=== PATIENT | male | born 2000 | race Caucasian/White ===

== ENCOUNTER 2018-07-15 14:14 | Emergency (ER) | payer OTHER ==
[~2018-07-15] VITALS: Ht 165.1 cm; Wt 77.5 kg
[2018-07-15 14:15] VITALS: BP 137/87
[2018-07-15] MEDS ORDERED: KETOROLAC TROMETHAMINE 10 MG TAB PO ONE (15:30)
[2018-07-15] MEDS ORDERED: KETO10TAB PO (16:17)
--- NOTE | 2018-07-15 16:22 | REP ---
Left knee and five views History: Pain There is no acute fracture or dislocation. The joint spaces are normal in appearance. Impression: There is no acute fracture or dislocation. Electronically Signed by Ricardo Wong MD 07/15/2018 04:13 P
== END 2018-07-15 16:20 | disposition home or self-care (01) ==
LOC: M ED 14:14
DX: M79.662 Pain in left lower leg (principal); F43.10 Post-traumatic stress disorder, unspecified; F41.9 Anxiety disorder, unspecified; G47.30 Sleep apnea, unspecified

== ENCOUNTER 2018-11-08 16:04 | Emergency (ER) | payer MEDICAID, OTHER, SELFPAY ==
[~2018-11-08] VITALS: Ht 160 cm; Wt 75.0 kg
[~2018-11-08 16:04] MED LIST: KETO10TAB PO
[2018-11-08] MEDS ORDERED: ACET1TAB55 PO (16:11)
[2018-11-08 17:19] LABS: BASO # 0.1 10^3/uL (0.0-0.2); BASO % 0.5 % (0.0-1.0); EOS # 0.1 10^3/uL (0.0-0.5); EOS % 0.7 % (0.0-3.0); HEMATOCRIT 45.2 % (42.0-52.0); HEMOGLOBIN 15.3 g/dl (13.5-17.5); LYMPH # 1.7 10^3/uL (1.5-5.0); LYMPH % 15.8 % (24.0-44.0); MEAN CORPUSCULAR HEMOGLOBIN 28.4 pg (27.0-33.0); MEAN CORPUSCULAR HGB CONC 33.8 g/dl (32.0-36.5); MEAN CORPUSCULAR VOLUME 83.9 fl (80.0-96.0); MONO # 0.6 10^3/uL (0.0-0.8); MONO % 5.8 % (0.0-5.0); NEUTROPHILS # 8.2 10^3/uL (1.5-8.5); NEUTROPHILS % 76.9 % (36.0-66.0); PLATELET COUNT, AUTOMATED 208 10^3/uL (150-450); RED BLOOD COUNT 5.39 10^6/uL (4.30-6.10); WHITE BLOOD COUNT 10.6 10^3/uL (4.0-10.0)
[2018-11-08 17:45] LABS: BLOOD UREA NITROGEN 15 MG/DL (7-18); CALCIUM LEVEL 9.3 MG/DL (8.5-10.1); CARBON DIOXIDE LEVEL 28 MEQ/L (21-32); CHLORIDE LEVEL 105 MEQ/L (98-107); CREATININE FOR GFR 1.17 MG/DL (0.70-1.30); GLUCOSE, FASTING 83 MG/DL (70-100); POTASSIUM SERUM 4.2 MEQ/L (3.5-5.1); SODIUM LEVEL 138 MEQ/L (136-145)
[2018-11-08 17:50] LABS: MONO REFLEX EBV COMP NEGATIVE (NEGATIVE)
[2018-11-08 17:53] LABS: INFLUENZA A AMPLIFICATION NEGATIVE (NEGATIVE); INFLUENZA B AMPLIFICATION NEGATIVE (NEGATIVE)
[2018-11-08] MEDS ORDERED: AMOX500C PO (17:59)
[2018-11-08 18:13] VITALS: BP 128/69
[2018-11-11 00:26] LABS: EBV VIRAL CAPSID AG IgG 53.5 U/mL (0.0-17.9); EBV VIRAL CAPSID AG IgM <36.0 U/mL (0.0-35.9)
== END 2018-11-08 18:14 | disposition home or self-care (01) ==
LOC: M ED 16:04
DX: J02.8 Acute pharyngitis due to other specified organisms (principal); F43.10 Post-traumatic stress disorder, unspecified; G47.00 Insomnia, unspecified

== ENCOUNTER 2018-12-29 08:57 | Emergency (ER) | payer MEDICAID ==
[~2018-12-29] VITALS: Ht 160 cm; Wt 75.5 kg
[~2018-12-29 08:57] MED LIST changes: +ACET1TAB55 PO; +AMOX500C PO
[2018-12-29 09:40] LABS: BASO % 0.2 % (0.0-1.0); EOS % 0.1 % (0.0-3.0); HEMOGLOBIN 17.1 g/dl (13.5-17.5); LYMPH # 0.4 10^3/uL (1.5-5.0); MEAN CORPUSCULAR HEMOGLOBIN 27.6 pg (27.0-33.0); MEAN CORPUSCULAR HGB CONC 32.9 g/dl (32.0-36.5); MONO # 0.4 10^3/uL (0.0-0.8); MONO % 2.9 % (0.0-5.0); NEUTROPHILS # 12.7 10^3/uL (1.5-8.5); NEUTROPHILS % 93.5 % (36.0-66.0); PLATELET COUNT, AUTOMATED 213 10^3/uL (150-450); RED BLOOD COUNT 6.19 10^6/uL (4.30-6.10); WHITE BLOOD COUNT 13.5 10^3/uL (4.0-10.0)
[2018-12-29] MEDS ORDERED: NS 1,000 ML IV ONE (09:45)
[2018-12-29] MEDS ORDERED: ONDANSETRON 4MG/2ML VIAL (J2405) IV ONE (09:45)
[2018-12-29 10:02] LABS: ALBUMIN 4.5 GM/DL (3.2-5.2); ALT/SGPT 33 U/L (12-78); BILIRUBIN,DIRECT 0.3 MG/DL (0.0-0.2); BILIRUBIN,TOTAL 1.3 MG/DL (0.2-1.0); BLOOD UREA NITROGEN 16 MG/DL (7-18); CALCIUM LEVEL 9.6 MG/DL (8.5-10.1); CARBON DIOXIDE LEVEL 27 MEQ/L (21-32); CHLORIDE LEVEL 108 MEQ/L (98-107); CK-MB VALUE MASS < 1.0 NG/ML (<3.6); CPK CREATINE PHOSPHOKINASE 86 U/L (39-308); CREATININE FOR GFR 1.22 MG/DL (0.70-1.30); GLUCOSE, FASTING 114 MG/DL (70-100); LIPASE 356 U/L (73-393); MB/CK RELATIVE INDEX 1.16 (< OR =4); POTASSIUM SERUM 4.3 MEQ/L (3.5-5.1); SODIUM LEVEL 140 MEQ/L (136-145); TROPONIN I < 0.02 NG/ML (< 0.10)
--- NOTE | 2018-12-29 10:26 | REP ---
HISTORY: Abdominal pain. COMPARISON: 09/03/2011. FINDINGS: The superior mediastinal structures are midline. The cardiac silhouette is unremarkable in size, shape and position. The diaphragmatic surfaces of the lungs are regular and the costophrenic angles are clear. The pulmonary bray are clear. The imaged osseous structures are intact. IMPRESSION: There is no acute cardiopulmonary disease. Electronically Signed by Lc Rivers DO 12/29/2018 12:22 P
--- NOTE | 2018-12-29 10:26 | REP ---
REASON: Abdominal pain. COMPARISON: None. FINDINGS: KUB shows the intestinal gas pattern to be nonspecific. The organ silhouettes insofar as delineated are unremarkable. There is no evidence of free intraperitoneal air. IMPRESSION: Nonspecific. Electronically Signed by Lc Rivers DO 12/29/2018 12:22 P
[2018-12-29] MEDS ORDERED: GI COCKTAIL 50ML BTL(HYOSCYAMINE/MAALOX/LIDOCAINE VISCOUS)(1:3:1) PO ONE (11:15)
--- NOTE | 2018-12-29 13:11 | ECGEPIP ---
[facility] - ED Test Date: 2018-12-29 Pat Name: JANAK BURNS Department: Room: - Gender: Male [employer]: : 2000 Requested By: SUDHIR Montanez PA-C Order Number: [id number] Reading MD: Mallory Lopez Measurements Intervals [place] Rate: 61 P: 17 OR: 151 QRS: 8 QRSD: 89 T: 29 QT: 375 QTc: 379 Interpretive Statements SINUS RHYTHM SEPTAL MYOCARDIAL INFARCTION, OF INDETERMINATE AGE NONSPECIFIC ST T WAVE CHANGES NO PRIOR ECG FOR COMPARISON Electronically Signed on 12-29-2018 13:10:45 EST by Mallory Lopez
--- NOTE | 2018-12-29 13:31 | REP ---
Ultrasonographic images of the liver shows mild intrahepatic ductal dilatation. The common bile duct is mildly dilated measuring 5 mm. Multiple ultrasonographic images of the gallbladder show mild pericholecystic edema. There is mild diffuse gallbladder wall thickening. The imaged portion of the pancreas and right kidney are unremarkable. IMPRESSION: Mild ductal dilatation as described above with gallbladder findings as described above. Acute cholecystitis cannot be ruled out. Electronically Signed by Lc Rivers DO 12/29/2018 02:47 P
[2018-12-29] MEDS ORDERED: ISOVUE-370 76% 100ML VIAL (Q9967) As Ordered ONE (14:27)
[2018-12-29] MEDS ORDERED: PIPERACILLIN/TAZOBACTAM SOD 3.375 GM in D5W MINI-BAG PLUS 50 ML IV ONE (14:30)
[2018-12-29 16:13] LABS: CK-MB VALUE MASS < 1.0 NG/ML (<3.6); CPK CREATINE PHOSPHOKINASE 66 U/L (39-308); MB/CK RELATIVE INDEX 1.52 (< OR =4); TROPONIN I < 0.02 NG/ML (< 0.10)
[2018-12-29] MEDS ORDERED: ONDA4TAB6 PO (17:15)
[2018-12-29 18:38] VITALS: BP 120/70
--- NOTE | 2018-12-29 23:03 | CR ---
DATE OF CONSULTATION: 12/29/2018 REASON FOR CONSULTATION: Abdominal pain with nausea and vomiting. HISTORY OF PRESENT ILLNESS: The patient is a 18-year-old man who reports that he has generally been in good health. He reports that on the evening of December 28 at about 10 o'clock in the evening, he developed nausea with vomiting. He had perhaps three episodes of nausea and vomiting by perhaps an hour. This morning he continued with some dry heaves and developed some pain in his lower chest and upper abdomen. He presented to the emergency department at about 9 o'clock in the morning. He has undergone a fairly exhaustive workup in the emergency department. He had a stool test for a GI panel and was found to have norovirus. He had labs that showed a very slight elevation of the white count to 14,000 with 94% neutrophils and his chemistry profile showed minimal elevations of his total and direct bilirubin, but otherwise normal liver function tests and normal electrolytes. He had a chest x-ray, and abdominal x-ray, a gallbladder ultrasound, and has now had a CT angiogram of the chest. The radiologist who interpreted the gallbladder ultrasound described mild ductal dilatation with some mild diffuse gallbladder wall thickening and mild pericholecystic edema. I was therefore consulted to evaluate the patient regarding gallbladder disease. ALLERGIES: The patient has no known drug allergies. MEDICATIONS: He is on no scheduled medications. SURGICAL HISTORY: Negative. 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 He has no heart, lung endocrine or intestinal problems. FAMILY HISTORY: Noncontributory. SOCIAL HISTORY: He is . His father accompanied him to the emergency department. He denies tobacco use or any alcohol intake. REVIEW OF SYSTEMS: He has no history of chest pain or palpitations. He has no cough, wheezing or sputum production. The patient reports that his nausea and vomiting were the initial event in his illness without any associated abdominal pain at that time. He did also developed diarrhea overnight and had several bouts of diarrhea. He has not had any bleeding noted. He denies any prior similar history. He reports that he does not have any known sick contacts recently. He denies any urologic issues and has no history of deep vein thrombosis (DVT) or pulmonary embolus. PHYSICAL EXAMINATION: The patient's most recent vital signs showed a temperature of 99.8, pulse 65, respirations of 80 and blood pressure of 112/54. The patient is a pleasant young man sitting quietly on the edge of the ER stretcher. He moves readily in position without any evidence of significant abdominal discomfort. He is alert, oriented and cooperative. Skin is warm and dry. Sclerae are anicteric. Mucous membranes are moist. The neck is supple. Heart exam shows a regular rate and rhythm at about 60-65. Lungs are clear to auscultation bilaterally. The abdomen is flat and nondistended. He has bowel sounds present on auscultation. There are no scars evident. There is no tympany to percussion and no tenderness to percussion. With palpation, he has a small area of minimal tenderness in the high epigastrium. No masses are appreciated. There is no evident hernia. Extremities were without edema. Laboratory studies include a complete blood count (CBC) showing a white count of 14, hematocrit of 52, platelet count of 213,000 and a differential showing 94% neutrophils, 3% lymphocytes and 3% monocytes. He had a D-dimer that was 442 which is normal and a chemistry profile that showed essentially normal electrolytes with a BUN of 16, creatinine 1.2 and glucose of 114. Total bilirubin and direct bilirubin were both slightly elevated at 1.3 and 0.3 respectively and the remainder of the liver function tests were normal. Lipase was normal at 356. His troponin was normal. Urinalysis showed no evidence for urinary tract infection. His imaging studies included a chest x-ray which was normal and abdominal x-ray which was normal and a gallbladder ultrasound which was interpreted by the radiologist as showing mild dilation of the common bile duct with mild wall thickening of the gallbladder and a mild pericholecystic edema. No stones however were described. He had a CT angiogram of the chest; the report of which is pending, though I see no obvious abnormality on my own review. He did have a norovirus test that was positive. IMPRESSION: Norovirus gastroenteritis without any evidence to support significant gallbladder disease. RECOMMENDATIONS: I would recommend that the patient be discharged home with appropriate recommendations regarding his norovirus infection. I would not recommend any treatment as I believe the findings on his ultrasound are likely of no clinical significance.
--- NOTE | 2018-12-30 07:26 | REP ---
REASON: Chest pain and dyspnea. PRIORS: None. CONTRAST: 100 mL Isovue 370. There is excellent visualization of the pulmonary arterial vasculature. There are no focal filling defects present that would be considered consistent with pulmonary emboli. There is no mediastinal or hilar adenopathy. There are no pleural or pericardial effusions. The imaged upper abdomen and imaged osseous structures are within normal limits. Evaluation of the lung bray show no abnormalities. IMPRESSION: CT findings are within normal limits. Electronically Signed by Lc Rivers DO 12/30/2018 09:22 A
--- NOTE | 2018-12-30 08:16 | ECHO ---
DATE OF PROCEDURE: 12/29/2018 REFERRING PHYSICIAN: DAVY Al INDICATION: Abnormal ECG. HEIGHT: 160 cm WEIGHT: 75 kg 2D MEASUREMENTS: Aortic root: 3.7 cm Left atrium: 3.0 cm Ventricular septum: 0.85 cm Posterior wall: 1.0 cm Left ventricle diastole: 5.1 cm DOPPLER MEASUREMENTS: No aortic regurgitation. Aortic valve velocity: 140 cm/s LVOT velocity: 88.1 cm/s Mild mitral regurgitation within normal limits. Mitral E velocity: 71.6 cm/s Mitral A velocity: 57.8 cm/s Trace tricuspid regurgitation. Trace pulmonic regurgitation. Pulmonary acceleration time: 144 milliseconds. MITRAL ANNULAR TISSUE DOPPLER: E prime septal: 11.2 cm/s E prime lateral: 12.1 cm/s DESCRIPTION: Rhythm was sinus. Image quality was good. This was a 2D, M-mode, color flow Doppler and pulse wave Doppler examination and included mitral annular tissue Doppler. CONCLUSIONS: 1. Normal echocardiogram Doppler. 2. Normal left ventricle internal dimensions and wall thickness. Normal regional LV wall motion and wall thickening. Normal LV systolic function. Left ventricular ejection fraction 60% by visual estimate. Normal LV diastolic function. 3. No pericardial effusion.
== END 2018-12-29 18:40 | disposition home or self-care (01) ==
LOC: M ED 08:57
DX: A08.4 Viral intestinal infection, unspecified (principal); K21.9 Gastro-esophageal reflux disease without esophagitis
CPT/HCPCS: 36415; 71046; 71275; 74018; 76705; 80048; 80076; 81001; 82270; 82550; 82553; 83690; 85025; 85379; 87040; 87507; 93005; 93306; 96361; 96365; 96375; 99284; J2405; J2543; Q9967